=== PATIENT | female | born 2000 | race Caucasian/White ===

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

== ENCOUNTER 2019-02-09 15:24 | Inpatient (IN) | payer MEDICAID, SELFPAY ==
[2019-02-09] MEDS ORDERED: Fentanyl 100 MCG/2 ML VIAL ONE ×3 (15:36→17:42)
[2019-02-09] MEDS ORDERED: Ketamine 50 MG/ML (10ML VIAL) ONE (15:46)
[2019-02-09] MEDS ORDERED: Midazolam HCl 2 mg/2 ml Vial ONE (15:49)
[2019-02-09] MEDS ORDERED: Bupivacaine HCl 0.5%/Epinephrine 1:200,000/PF 30 ml Vial ONE (15:50)
[2019-02-09 15:58] LABS: Bilirubin Small (Negative); Blood, Urine Negative (Negative); Clarity TURBID (Clear); Glucose, Urine (Dipstick) Negative (Negative); Leukocyte Negative (Negative); Nitrite Negative (Negative); Protein, Urine (Dipstick) Trace mg/dL (Neg-Trace); Specific Gravity, Urine 1.031 (1.002-1.036); Urobilinogen 0.2 mg/dL (0.2-1.0)
[2019-02-09] MEDS ORDERED: Albumin 5% 500 ML ONE (15:59)
[2019-02-09] MEDS ORDERED: SUGAMMADEX SODIUM 200 MG/2 ML VIAL ONE (17:33)
[2019-02-09] MEDS ORDERED: Promethazine HCl 25 MG/ML VIAL ONE (17:42)
[2019-02-09] MEDS ORDERED: Meperidine HCl/PF 25 MG/ML VIAL SLOW IVP PRN (17:51)
[2019-02-09] MEDS ORDERED: Ondansetron PF 4 MG/2 ML Vial IVP PRN (17:51)
[2019-02-09] MEDS ORDERED: diphenhydrAMINE 50 MG/ML VIAL IVP PRN (17:51)
[2019-02-09] MEDS ORDERED: diphenhydrAMINE 25 MG CAP PO PRN (17:51)
[2019-02-09] MEDS ORDERED: diphenhydrAMINE 50 MG/ML VIAL IM PRN (17:51)
[2019-02-09] MEDS ORDERED: fentaNYL Citrate/PF 2,000 MCG in Sodium Chloride 0.9% 60 ML IV PRN (17:51)
[2019-02-09] MEDS ORDERED: Promethazine HCl 25 MG/ML VIAL SLOW IVP PRN (17:51)
[2019-02-09] MEDS ORDERED: Zolpidem Tartrate 5 MG TAB PO PRN (17:51)
[2019-02-09] MEDS ORDERED: Promethazine HCl 25 MG/ML VIAL IM PRN ×2 (17:51)
[2019-02-09] MEDS ORDERED: Ondansetron HCl/PF 4 MG/2 ML Vial IVP PRN (17:51)
[2019-02-09] MEDS ORDERED: Naloxone HCl 0.4 mg/ml Vial IV PRN (17:51)
--- NOTE | 2019-02-09 18:23 | PDOC.EVN ---
Event Note - Event Note Event Note: 18 yo WF sent by helicopter here for +PT and USG with empty uterus and pelvic free fluid. Given 1 unit PRBC in route, [address] In ER here, BPs 70/50's, fluid given blood ordered. Taken to OR where she remained unstable with pulse= 100s-110s, blood given there x 1 unit. Exploratory laparotomy with 1000 cc hemoperitonium and actively bleeding ruptured tube on L side. Salpingectomy performed. H&P written and on chart. Op report dictated. To RR stable.
[2019-02-09 19:51] LABS: Hemoglobin 11.1 g/dL (12.0-16.0); Mean Corpuscular HGB CONC 33.7 g/dL (32.0-36.0); Mean Corpuscular Hemoglobin 29.8 pg (25.0-35.0); Mean Corpuscular Volume 88.6 fL (78.0-98.0); Mean Platelet Volume 9.2 fL (7.4-10.4); Platelet Count 154 thou/uL (130-400); RBC Distribution Width 12.5 % (11.5-14.5); Red Blood Cell (RBC) Count 3.74 mill/uL (4.00-5.20); White Blood Cell (WBC) Count 16.5 thou/uL (4.8-10.8)
[2019-02-09] MEDS ORDERED: Acetaminophen 325 MG TAB PO PRN (20:14)
[2019-02-09] MEDS ORDERED: Ondansetron ODT 4 MG TAB PO PRN (20:14)
[2019-02-09 20:58] VITALS: BMI 43.3
[2019-02-09] MEDS: Communication Order-Pharmacy FS SCH (21:37)
--- NOTE | 2019-02-10 00:28 | PDOC.EVN ---
Event Note - Event Note Event Note: POD#1 Resting comfortably. Feels much better, no complaints. VS: BP= 111/54, P= 110. Afebrile. Abdomen is soft. Dressing is dry. Thakur with clear urine, UO is good. A/P: S/p exploratory lap with SO for ruptured ectopic. Currently stable. H/H at 6 AM. Clears in AM and advance.
[2019-02-10 09:17] LABS: Hemoglobin 9.3 g/dL (12.0-16.0); Mean Corpuscular Volume 88.2 fL (78.0-98.0); Mean Platelet Volume 8.6 fL (7.4-10.4); Platelet Count 148 thou/uL (130-400); RBC Distribution Width 12.5 % (11.5-14.5); Red Blood Cell (RBC) Count 3.12 mill/uL (4.00-5.20); White Blood Cell (WBC) Count 14.6 thou/uL (4.8-10.8)
--- NOTE | 2019-02-10 13:20 | OP ---
DATE OF PROCEDURE: 02/09/2019 PREOPERATIVE DIAGNOSIS: Suspected ruptured ectopic . POSTOPERATIVE DIAGNOSIS: Ruptured ectopic . PROCEDURES PERFORMED: 1. Exploratory laparotomy. 2. Left salpingectomy with repair of mesosalpinx. OFFICE MACHINE SERVICE SUPERVISOR SURGEON: Carmen Beltran DO, resident physician. ANESTHESIA: General endotracheal. ESTIMATED BLOOD LOSS: 1000 mL. COMPLICATIONS: None. PROPHYLAXIS: Ancef 2 g IV prior to skin incision. FINDINGS: 1. 1000 mL hemoperitoneum. 2. Ruptured left fallopian tube in the midportion with extension into the mesosalpinx, actively bleeding at the time of exploration. PROCEDURE IN DETAIL: After informed consent was obtained in the emergency room , the patient was taken rapidly taken to the operating room where general endotracheal anesthesia was used and the patient was prepped and draped in usual sterile fashion in the supine position. A transverse incision was made 2 fingerbreadths above the symphysis pubis and the abdomen was entered in layers. Upon entry into the peritoneal cavity, a copious amount of blood was seen. This was irrigated and the clots removed. The total of this was approximately 900 to a 1000 mL. Once the clots had been removed, a self-retaining retractor was placed. The pelvis could be visualized and at that time it could be seen that she had a very small uterus with a normal right tube and right ovary. On the left side, showed a normal ovary, but in the midportion of the tube, there was an area of complete rupture with active bleeding. Tena clamps were placed across both the proximal portion of the tube as well as the remainder of the distal tube. These areas were excised. The pedicles were suture ligated. There was a small area of bleeding in the mesosalpinx and this was repaired using a running locking suture of 2-0 chromic. At the completion of the case, all pedicles on this side as well as the mesosalpinx were hemostatic. The pelvis was then thoroughly irrigated with a copious amount of saline. The wet lap packs and self-retaining retractor were then removed. The fascia was closed using 2 sutures of 0 Vicryl, brought laterally to the midline in an alternating running locking fashion. The subcutaneous tissue was closed using interrupted plain gut suture and the skin was closed with metal byron. Good hemostasis was noted throughout all layers of closure. Sponge, lap, and needle counts were correct. The patient was in stable condition at the conclusion of the case and she was taken to recovery room in stable condition. Job ID: [id number] [facility]
[2019-02-10] MEDS: Acetaminophen 500 MG TAB PO SCH ×2 (19:57→21:10)
[2019-02-10] MEDS: Sodium Chloride 0.9% 1,000 ML IV SCH ×2 (21:11→21:15)
[2019-02-10] MEDS: Communication Order-Pharmacy FS SCH (21:14)
[2019-02-11] MEDS: Acetaminophen 500 MG TAB PO SCH ×2 (02:29→12:04)
[2019-02-11] MEDS: Sodium Chloride 0.9% 1,000 ML IV SCH (02:31)
[2019-02-11] MEDS ORDERED: Ibuprofen 800 MG TAB PO PRN (07:38)
[2019-02-11] MEDS ORDERED: traMADol HCl 50 MG TAB PO PRN (07:39)
[2019-02-11 07:56] VITALS: BP 100/55; TEMP 97.8
[2019-02-11] MEDS ORDERED: Acetaminophen 325 MG TAB PO PRN (14:00)
--- NOTE | 2019-02-11 18:39 | DIS ---
DATE OF ADMISSION: 02/09/2019 DATE OF DISCHARGE: 02/11/2019 ADMITTING DIAGNOSIS: Ruptured ectopic , status post laparotomy. DISCHARGE DIAGNOSES: 1. Ruptured ectopic , status post laparotomy. 2. Acute blood loss anemia. PROCEDURE: Laparotomy with left salpingectomy and blood transfusion. CONSULTATIONS: None. HOSPITAL COURSE: The patient is a 18-year-old female, who was transferred from an outside facility with concerns of a ruptured ectopic. Given her overall clinical picture, Dr. Dickens, the OB hospitalist on duty used a laparotomy approach for entry. For complete details, please refer to the operative note. The patient has been given a total of 2 units of packed red blood cells one en route and one intraoperatively. Her postoperative course has been uncomplicated. The patient reports that she is having good pain control with a CLAMP OPERATOR. Has passed gas and is tolerating p.o. and voiding on her own. PHYSICAL EXAMINATION: VITAL SIGNS: This morning; blood pressure is 106/57, temperature 98.8, pulse of 86, and respiratory rate of 16. GENERAL: She appears to be in no acute distress. She is alert and oriented, cooperative and pleasant to interact with. HEENT: Head is normocephalic and atraumatic. ABDOMEN: Soft. Incision is clean, dry, and intact with byron. EXTREMITIES: Nontender, nonedematous. Her postdelivery and post transfusion; hemoglobin is 9.3, hematocrit 27.5, and platelets are 148,000. The patient is being discharged to home after a trial of oral analgesics with ibuprofen and tramadol. CLAMP OPERATOR is being discontinued. The patient has been given instructions to call [facility] for staple removal in the next 4 to 5 days. If she is unable to get in there in a timely manner, we have asked just to return to the hospital for staple removal. Prescription for ibuprofen 800 mg to be taken 3 times a day as needed for pain #20 and tramadol 50 mg one tablet p.o. q.4 hours p.r.n. for pain #20 will be provided to the patient. The patient has been given lifting limitations of 15 pounds for the next 4 to 6 weeks given the size of her incision. Job ID: [id number]
[2019-02-15 09:57] LABS: Actual Bicarbonate (HCO3a) 20.6 mEq/L (22-28); Analyzer IN Cardio OR; Base Excess (BEa) -6.4 mEq/L (-2.0 to +3.0); CO2 Tension 47.3 mmHg (35.0-45.0); Calcium, Ionized 1.23 mmol/L (1.12-1.30); Carboxyhemoglobin (COHb) 1.1 gm% (0.0-3.0); Hemoglobin (Hb) 10.9 g/dL (11.4-15.4); O2 Tension (PaO2) 149.7 mmHg (80.0-100.0); Potassium - ABG Lab 4.27 mmol/L (3.70-5.30); pH, Arterial 7.26 (7.35-7.45)
[2019-02-15 10:26] LABS: Puncture Site ALINE
== END 2019-02-11 15:20 | disposition home or self-care (01) | DRG 818 ==
LOC: ERS 15:24 → 3SE 16:08
PROVIDERS: ADMIT Obstetrics & Gynecology; ATTEND Obstetrics & Gynecology
PROC: 10T20ZZ Resection of Products of Conception, Ectopic, Open Approach (ICD-10-PCS; principal; 2019-02-09)
PROC: 0UT60ZZ Resection of Left Fallopian Tube, Open Approach (ICD-10-PCS; 2019-02-09)
DX: O00.102 Left tubal pregnancy without intrauterine pregnancy (principal); D62 Acute posthemorrhagic anemia
CPT/HCPCS: 36415; 51702; 81003; 85027; 86850; 86900; 86901; 88305; 96374; J0131; J0670; J2250; J2550; J3010; J3490; P9016; P9045